=== PATIENT | female | born 1965 | race American Indian/Alaskan Native ===

== ENCOUNTER 2017-04-01 05:38 | Observation (INO) | payer BC ==
--- NOTE | 2017-03-26 10:26 | History and Physical Report ---
History of Present Illness Date of examination: 03/26/17 Date of admission: 04/01/2017 Chief complaint: vaginal bleeding after menopause History of present illness: Visit Type: Pre-Op CC: no complaints. History of Present Illness: Patient presents for preop eval, she has no further complaints...Zac Miles Pt here for pre op for lavh with bso due to post menopausal bleeding.She has been having monthly bleeding for the last several month. SIS and EmBx were negative. Pt desired definititve therapy. Pt has see pcp and has gotten medical clearance. All questions were addressed and answered. All risk/benefits/ alternatives were d/w pt and questions were addressed and answered. Consents were signed and given to pt to provide at pre op. Vital Signs: Patient Profile: 51 Years Old Female LMP: 12/19/2016 Height: 68 inches (172.72 cm) Weight: 302 pounds BMI: 45.91 BP sittin / 120 (left arm) Vitals Entered By: Zac Miles (March 26, 2017 9:58 AM) Menstrual History: LMP (date): 12/19/2016 Date of Last Pap Smear: 02/04/2017 Serial Vital Signs/Assessments: Time Position BP Pulse Resp Temp By 140/100 Zac Miles Past History : 2 Term Births: 1 Premature Births: 2 Living Children: 3 Para: 3 # 1 Comments: [id number] [employer] History Uterine Surgery (not C/S): negative Operations: Tubal Ligation Hospitalizations: negative Anesthesia Complications: negative Abnormal PAP: negative Uterine Anomaly: negative LIZY Exposure: negative Infertility: negative Infection History HIV Risk Eval: no Hx of STD: None Active Medications: HYDROCHLOROTHIAZIDE 50 MG TABS (HYDROCHLOROTHIAZIDE) BYSTOLIC 20 MG TABS (NEBIVOLOL HCL) Current Allergies: No known allergies Past Medical History: Reviewed history from 03/29/2013 and no changes required: Hypertension Past Surgical History: Reviewed history from 03/29/2013 and no changes required: Tubal Ligation Family History Summary: Reviewed history and no changes required: 03/31/2017 General Comments - FH: Family History Colon Cancer-father No Family History of Breast Cancer No Family History of Ovarvian Cancer No Family History of DVT/PE on OCP Social History: Reviewed history from 03/29/2013 and no changes required: Patient is Risk Factors: PAP Smear History: Date of Last PAP Smear: 02/04/2017 Past History Past Medical History: hypertension, other (obesity) Past Surgical History: no surgical history [employer] History: denies: abnormal PAP smear, chlamydia, gonorrhea Social history: no significant social history, Medications and Allergies Allergies Allergy/AdvReac Type Severity Reaction Status Date / Time No Known Allergies Allergy Unverified 03/25/17 16:02 Home Medications Medication Instructions Recorded Confirmed Last Taken Type Hydrochlorothiazide [HCTZ] 25 mg PO QDAY 03/25/17 03/25/17 Unknown History Spironolactone [Aldactone] 25 mg PO BID 03/25/17 03/25/17 Unknown History cloNIDine [Catapres] 0.1 mg PO BID 03/25/17 03/25/17 Unknown History Active Meds: Active Medications Cefazolin Sodium (Ancef/Sterile Water 2 Gm/20 Ml) 2 gm in 20 mls @ 80 mls/hr IV PREOP NR PRN Reason: Protocol Review of Systems All systems: negative - Physical Exam Breasts: Positive: deferred Cardiovascular: Normal S1, Normal S2 Lungs: Positive: Clear to auscultation, Normal air movement Abdomen: Positive: normal appearance, soft. Negative: distention, tenderness, guarding Genitourinary (Female): Positive: other (deferred until EUA) Extremities: Positive: normal. Negative: tenderness, edema Deep Tendon Reflex Grade: Normal +2 Results Result Diagrams: 03/26/17 11:20 03/26/17 11:20 All other labs normal. Assessment and Plan - Patient Problems (1) Post-menopause bleeding Status: Acute Plan to address problem: -negative embx -desires definitive therapy in the form of RIANNA/BSO -all questions were addressed and answered. all risk, benefits, and alternatives were d/w pt -consents signed and given to pt to bring to hospital pre-op visit.
--- NOTE | 2017-03-26 11:38 | Anesthesia Consultation ---
Anesthesia Consult and Med Hx Date of service: 04/01/17 - Airway Anesthetic Teeth Evaluation: Good, Bridges ROM Head & Neck: Adequate Mental/Hyoid Distance: Adequate Mallampati Class: Class II Intubation Access Assessment: Good - Pulmonary Exam CTA: Yes - Cardiac Exam Cardiac Exam: No Murmur - Pre-Operative Health Status ASA Pre-Surgery Classification: ASA2 Proposed Anesthetic Plan: General - Pulmonary Hx Sleep Apnea: Yes - Cardiovascular System Hx Hypertension: Yes (x 20 yrs) - Central Nervous System Hx Psychiatric Problems: No - Other Systems Hx Cancer: No
[2017-03-26 12:00] LABS: Hematocrit 38.9 % (30.3-42.9); Hemoglobin 12.9 gm/dl (10.1-14.3); Mean Corpuscular HGB Conc 33 % (30-34); Mean Corpuscular Volume 78 fl (79-97); Platelet Count 284 K/mm3 (140-440); Red Cell Distribution Width 16.2 % (13.2-15.2); White Blood Count 8.5 K/mm3 (4.5-11.0)
[2017-03-26 12:01] LABS: Mean Corpuscular Hemoglobin 26 pg (28-32)
[2017-03-26 12:15] LABS: Anion Gap 19 mmol/L; Blood Urea Nitrogen 17 mg/dL (7-17); Calcium 9.5 mg/dL (8.4-10.2); Carbon Dioxide 26 mmol/L (22-30); Chloride 97.7 mmol/L (98-107); Glucose 95 mg/dL (65-100); Sodium 139 mmol/L (137-145)
[~2017-04-01 05:38] MED LIST: ANCEF/STERILE WATER 2 GM/20 ML 2 GM/20 ML SYRINGE IV NR
[2017-04-01] MEDS ORDERED: NEURONTIN PO NR (06:00)
[2017-04-01] MEDS ORDERED: VERSED IV NR (06:00)
[2017-04-01] MEDS ORDERED: PEPCID PO NR (06:00)
[2017-04-01] MEDS ORDERED: NACL BACTERIOSTATIC INFILTRATI ONE (06:58)
[2017-04-01] MEDS: LACTATED RINGERS 1,000 ML IV SCH ×3 (07:00→22:35)
[2017-04-01] MEDS ORDERED: DIPRIVAN 10 MG/ML IV ONE (07:13)
[2017-04-01] MEDS ORDERED: SUBLIMAZE ONE (07:13)
[2017-04-01] MEDS ORDERED: XYLOCAINE MPF 2% ONE (07:13)
[2017-04-01] MEDS ORDERED: ZEMURON IV ONE (07:13)
[2017-04-01] MEDS ORDERED: MARCAINE 0.5% 30 ML INFILTRATI ONE (07:15)
[2017-04-01] MEDS ORDERED: Vasostrict ONE (07:16)
[2017-04-01] MEDS ORDERED: NACL 0.9% 100 ML ONE (07:16)
[2017-04-01] MEDS ORDERED: ePHEDrine SULFATE ONE (08:01)
[2017-04-01] MEDS ORDERED: DECADRON ONE (08:11)
[2017-04-01] MEDS ORDERED: THROMBIN (BOVINE) TP ONE (08:12)
[2017-04-01] MEDS ORDERED: ACD-A 500 ML IV ONE (08:12)
[2017-04-01] MEDS ORDERED: CALCIUM CHLORIDE IV ONE (08:12)
[2017-04-01] MEDS ORDERED: MARCAINE 0.5% INFILTRATI ONE ×2 (08:13)
[2017-04-01] MEDS ORDERED: NEOSTIGMINE ONE (08:15)
[2017-04-01] MEDS ORDERED: ZOFRAN ONE (08:15)
[2017-04-01] MEDS ORDERED: ROBINUL ONE (08:15)
[2017-04-01] MEDS ORDERED: Vasostrict IM ONE ×2 (08:43)
[2017-04-01] MEDS ORDERED: DILAUDID ONE (09:35)
[2017-04-01] MEDS ORDERED: MORPHINE IV PRN (10:53)
[2017-04-01] MEDS ORDERED: NARCAN 0.4 MG/1 ML IV PRN (10:53)
--- NOTE | 2017-04-01 10:53 | Operative Report ---
Operative Report Operative Report: Date of procedure: 04/01/2017 Pre-operative diagnosis: Postmenopausal bleeding Irregular menstrual bleeding Uterine fibroids Post-operative diagnosis: Same Procedure name(s): Laparoscopic assisted vaginal hysterectomy Bilateral salpingo-oophorectomy Surgeon: Gunjan Duran MD Lap Hand Tool: Dr. Forrest Anesthesia: Gen. endotracheal anesthesia EBL: 200 mL Urine output: 150 mL of clear urine at end of the procedure Fluids: 1700 mL Findings: Grossly normal fallopian tubes and ovaries bilaterally Normal uterus Approximately 5 cm posterior uterine fibroid Indications: Patient presents with irregular postmenopausal bleeding and that was noted to be heavy at times. Patient had endometrial biopsy that was negative for malignancy. Patient desired definitive therapy in the form of removal of uterus and fallopian tubes and ovaries. All risks benefits and alternatives was discussed with the patient. Consents were signed and placed on the chart. Procedure: Patient was taken to the operating room where she was placed under general endotracheal anesthesia. She was then prepped and draped in sterile fashion. It was at this point that the medium V Snapette uterine manipulator was placed inside of the uterus after the uterus was sounded to approximately 10 cm. Sylvester catheter was also placed at this time. Attention was then turned to the umbilicus in which a supraumbilical incision was made. Under direct visualization the 5 mm trocar was placed inside the peritoneum the peritoneum was then insufflated. As at this point that the laparoscopic portion of the procedure was performed. 2 lateral 5 mm ports were also placed under direct visualization. Using the tripolar instrument the upper pedicles including the infundibulopelvic ligament and the round ligament were cauterized and transected with excellent hemostasis noted bilaterally. Attention was then turned vaginally. A weighted speculum was placed into the vagina and the cervix was grasped with a single-tooth tenaculum 2. The cervix was then injected circumferentially with Pitressin. The cervix was then circumferentially incised with the scalpel and the bladder dissected off of the pubovesical cervical fascia anteriorly with a sponge stick and Metzenbaum scissors. The same procedure was performed posteriorly and the posterior cul-de-sac was entered into sharply without difficulty. At this point a Randy Clamp was placed over the uterosacral ligaments on either side. These were then transected and suture ligated with 0 Vicryl. Hemostasis was assured. The cardinal ligaments were then clamped on both sides transected and suture ligated in similar fashion. The uterine arteries were then serially clamped with Randy clamps transected and suture ligated on both sides. Excellent hemostasis was visualized. After it was clear that the uterus had been completely from all pedicles the uterus was removed vaginally intact with cervix intact. The vaginal cuff angles were closed with figure of 8 stitches of 0 Vicryl on both sides. The peritoneum was incorporated in the stitching of the vaginal cuff. A series of interrupted figure of 8 sutures using 0 Vicryl were used to close the entire vaginal cuff. Excellent hemostasis was noted. The vagina was then irrigated copiously. Attention was then turned laparoscopically at which time PRP and RPR were placed along the vaginal cuff laparoscopically. Again all pedicles were noted to be hemostatic. The ureters were identified bilaterally with peristalsis noted bilaterally. All instruments were then removed from the abdomen and the vagina. All gas was released from the abdomen. The abdominal incisions were closed using 4-0 Monocryl. All of the abdominal incisions were injected with Marcaine without epi. Patient tolerated the procedure well sponge lap and needle counts were all correct 3 the patient was taken to the recovery room awake and in stable condition.
[2017-04-01] MEDS ORDERED: REGLAN IV PRN (11:00)
[2017-04-01] MEDS: TORADOL IV SCH ×3 (11:39→23:51)
[2017-04-01] MEDS ORDERED: NORCO 5/325 PO PRN (12:00)
--- NOTE | 2017-04-01 12:09 | Post Anesthesia Evaluation ---
- Post Anesthesia Evaluation Patient Participated: Yes Airway Patent: Yes Stable Respiratory Function: Yes Nausea/Vomiting: No Temp > 96.8F: Yes Pain Manageable: Yes Adequeate Hydration: Yes Anesthesia Complications: No
[2017-04-01] MEDS: ANCEF/NS 1 GM/50 ML 1 GM/50 ML BAG IV SCH ×2 (15:00→22:49)
[2017-04-02 03:34] LABS: Hematocrit 32.2 % (30.3-42.9); Hemoglobin 10.6 gm/dl (10.1-14.3)
[2017-04-02] MEDS: TORADOL IV SCH (05:57)
[2017-04-02] MEDS: LACTATED RINGERS 1,000 ML IV SCH (06:39)
--- NOTE | 2017-04-02 09:09 | Progress Note ---
Assessment and Plan - Patient Problems (1) Post-menopause bleeding Current Visit: Yes Status: Acute (2) S/P laparoscopic assisted vaginal hysterectomy (LAVH) Current Visit: Yes Status: Acute Plan to address problem: -routine post op care -d/c home today (3) S/P total hysterectomy and BSO (bilateral salpingo-oophorectomy) Current Visit: Yes Status: Acute Plan to address problem: -routine post op care -d/c home today Subjective - Subjective Date of service: 04/02/17 Principal diagnosis: POD #1 s/p LAVH with BSO Interval history: Doing well this am in good spiritis. S/p regular diet this am. Desires d/c home. Patient reports: appetite normal, voiding normally Objective - Vital Signs Latest vital signs: Vital Signs Temp Pulse Resp BP BP Pulse Ox 04/02/17 07:25 98.2 F 76 20 98 04/02/17 04:45 97.7 F 83 20 127/78 04/02/17 00:25 98.2 F 93 H 18 128/85 04/01/17 20:30 98.2 F 91 H 18 127/83 04/01/17 16:52 98.5 F 80 18 148/90 04/01/17 12:36 98.5 F 76 20 120/82 04/01/17 12:00 98.1 F 87 15 133/83 99 04/01/17 11:45 93 H 19 143/84 98 04/01/17 11:30 93 H 17 130/89 98 04/01/17 11:15 92 H 16 124/78 96 04/01/17 11:10 92 H 22 115/76 96 04/01/17 11:05 94 H 25 H 123/81 98 04/01/17 10:59 97.5 F L 95 H 20 126/81 95 Intake and Output 04/01/17 04/02/17 04/02/17 22:59 06:59 14:59 Intake Total 2208.333 1046.667 Output Total 300 1500 Balance 1908.333 -453.333 Intake: IV 1608.333 806.667 ANCEF/NS 1 GM/50 ML 1 gm 50 In 50 ml @ 100 mls/hr IV Q8H [facility] Rx#:[id number] Lactated Ringers 1,000 ml 1558.333 806.667 @ 100 mls/hr IV DIRECT [facility] Rx#:[id number] Oral 600 240 Output: Urine 300 1500 Indwelling Catheter 1500 Other: Total, Intake Amount 120 120 Total, Output Amount 600 Voiding Method Indwelling Catheter - Exam Cardiovascular: Present: Normal S1, Normal S2 Lungs: Present: Clear to auscultation, Normal air movement Abdomen: Present: normal appearance, soft, normal bowel sounds. Absent: distention, tenderness, guarding Extremities: Present: normal. Absent: tenderness, edema Deep Tendon Reflex Grade: Normal +2 Incision: Present: normal, intact
--- NOTE | 2017-04-02 09:10 | Discharge Summary ---
Providers - Providers Date of Admission: 04/01/17 10:53 Date of discharge: 04/02/17 Attending physician: CODY GALLAGHER Primary care physician: NENITA CASSIDY Hospitalization Reason for admission: other (for LAVH, BSO) Procedure: other (LAVH/ BSO) Procedure details: SEE OP NOTE Incision: normal, dry, intact Condition at discharge: Good Disposition: DC-01 TO HOME OR SELFCARE - Discharge Diagnoses (1) Post-menopause bleeding Status: Acute (2) S/P laparoscopic assisted vaginal hysterectomy (LAVH) Status: Acute (3) S/P total hysterectomy and BSO (bilateral salpingo-oophorectomy) Status: Acute Plan - Discharge Medications Prescriptions: Ibuprofen [Motrin 800 MG tab] 800 mg PO Q8HR PRN #30 tablet PRN Reason: Pain oxyCODONE /ACETAMINOPHEN [Percocet 5/325] 1 tab PO Q4HR #30 tab - Provider Discharge Summary Activity: routine, no sex for 6 weeks, no heavy lifting 4 weeks, no strenuous exercise Diet: routine Instructions: routine Additional instructions: [] Smoking cessation referral if applicable(refer to patient education folder for contact #) [] Refer to [facility]'s [facility] Booklet Call your doctor immediately for: * Fever > 100.5 * Heavy vaginal bleeding ( >1 pad per hour) * Severe persistent headache * Shortness of breath * Reddened, hot, painful area to leg or breast * Drainage or odor from incision. * Keep incision clean and dry at all times and follow doctor's instructions regarding bathing/showering - Follow up plan Follow up: CODY GALLAGHER MD [Staff Physician] - 7 Days
[2017-04-02 14:57] VITALS: BP 130/87
== END 2017-04-02 14:35 | disposition home or self-care (01) ==
LOC: OR 05:38 → OB 10:53
PROVIDERS: ADMIT Obstetrics & Gynecology; ATTEND Obstetrics & Gynecology
DX: N95.0 Postmenopausal bleeding (principal); I10 Essential (primary) hypertension; E66.8 Other obesity; Z90.710 Acquired absence of both cervix and uterus
CPT/HCPCS: 36415; 58552; 80048; 81025; 84703; 85014; 85018; 85027; 86850; 86900; 86901; 88305; 88307; 96365; 96375; 96376; G0378; J0690; J1100; J1170; J1885; J2250; J2405; J2704; J2710; J3010; J7120; 88302